=== PATIENT | male | born 1955 | race Caucasian/White ===

== ENCOUNTER → 2017-01-20 | Outpatient (CLI) | payer BC ==
[~2017-01-20] MED LIST: ADVI200T PO; LISI10TA4 PO; MULT1TAB18 PO; OMEG1CAP16 PO; OMEP40CA2 PO; PRAV1TAB39 PO; SALI0.653
[2017-01-20 17:57] LABS: ALBUMIN/GLOBULIN RATIO 1.48 (1.00-1.93); ALKALINE PHOSPHATASE 68 U/L (45-117); ALT/SGPT 29 U/L (12-78); ANION GAP 7 MEQ/L (8-16); AST/SGOT 14 U/L (15-37); BILIRUBIN,TOTAL 0.6 MG/DL (0.2-1.0); BLOOD UREA NITROGEN 18 MG/DL (7-18); CALCIUM LEVEL 8.3 MG/DL (8.8-10.2); CARBON DIOXIDE LEVEL 29 MEQ/L (21-32); CHLORIDE LEVEL 110 MEQ/L (98-107); CHOLESTEROL LEVEL 169 MG/DL (<200); CREATININE FOR GFR 0.86 MG/DL (0.70-1.30); GLOMERULAR FILTRATION RATE > 60.0 (>49); GLUCOSE, FASTING 94 MG/DL (80-110); POTASSIUM SERUM 4.5 MEQ/L (3.5-5.1); SODIUM LEVEL 146 MEQ/L (136-145); TOTAL PROTEIN 6.7 GM/DL (6.4-8.2); TRIGLYCERIDES LEVEL 64 MG/DL (<150)
[2017-01-20 18:02] LABS: BASO % 0.4 % (0.0-1.0); EOS # 0.2 K/mm3 (0.0-0.50); LARGE UNSTAINED CELL # 0.1 K/mm3 (0.0-0.4); LARGE UNSTAINED CELL % 2.3 % (0.0-4.0); LYMPH # 1.3 K/mm3 (1.5-4.5); MEAN CORPUSCULAR HGB CONC 33.2 g/dl (32.0-36.5); MEAN CORPUSCULAR VOLUME 93.2 fl (80.0-96.0); MONO # 0.4 K/mm3 (0.0-0.8); MONO % 7.6 % (0.0-5.0); NEUTROPHILS # 3.2 K/mm3 (1.8-7.7); NEUTROPHILS % 62.8 % (36.0-66.0); PLATELET COUNT, AUTOMATED 181 k/mm3 (150-450)
== END ==
LOC: M WUC 08:33
PROVIDERS: ATTEND Nurse Practitioner Family
DX: K21.9 Gastro-esophageal reflux disease without esophagitis (principal); E78.4 Other hyperlipidemia; I10 Essential (primary) hypertension

== ENCOUNTER → 2017-03-01 | Outpatient (REF) | payer BC | LOC: M LAB REF 16:15 | PROVIDERS: ATTEND Surgery | DX: L72.3 Sebaceous cyst (principal) ==

== ENCOUNTER → 2017-08-11 | Outpatient (CLI) | payer BC ==
[~2017-08-11] MED LIST changes: +SALI0.6523; -SALI0.653
[2017-08-14 14:11] LABS: PSA TOTAL 3.6 ng/mL (0.0-4.0)
== END ==
LOC: M WUC 08:18
PROVIDERS: ATTEND Nurse Practitioner Family
DX: R97.20 Elevated prostate specific antigen [PSA] (principal)

== ENCOUNTER 2017-10-24 08:14 | Day surgery (SDC) | payer OTHER, BC ==
[2017-10-24] MEDS: NS 1,000 ML IV (10:00)
[2017-10-24] MEDS ORDERED: PROPOFOL 200 MG/20 ML VIAL As Ordered (10:28)
[2017-10-24] MEDS ORDERED: LIDOCAINE 2% INJ 100 MG/5 ML SDV (FOR ANES.) As Ordered (10:28)
== END 2017-10-24 11:37 | disposition home or self-care (01) ==
LOC: M OPP 08:14
DX: Z12.11 Encounter for screening for malignant neoplasm of colon (principal); D12.5 Benign neoplasm of sigmoid colon; K64.0 First degree hemorrhoids; I10 Essential (primary) hypertension; E78.5 Hyperlipidemia, unspecified; K21.9 Gastro-esophageal reflux disease without esophagitis; R12 Heartburn; Z79.899 Other long term (current) drug therapy
CPT/HCPCS: 45380

== ENCOUNTER → 2018-08-10 | Outpatient (CLI) | payer MEDICARE, OTHER ==
[~2018-08-10] MED LIST changes: +OMEP20CA3 PO; -SALI0.6523; +SALI0.6528
[2018-08-10 18:01] LABS: BASO % 0.8 % (0.0-1.0); EOS # 0.1 10^3/uL (0.0-0.50); EOS % 2.4 % (0.0-3.0); HEMATOCRIT 44.8 % (42.0-52.0); HEMOGLOBIN 14.8 g/dl (13.5-17.5); LYMPH # 1.6 10^3/uL (1.5-4.5); LYMPH % 31.5 % (24.0-44.0); MEAN CORPUSCULAR HEMOGLOBIN 30.9 pg (27.0-33.0); MEAN CORPUSCULAR VOLUME 93.5 fl (80.0-96.0); MONO # 0.5 10^3/uL (0.0-0.8); MONO % 9.6 % (0.0-5.0); NEUTROPHILS # 2.8 10^3/uL (1.8-7.7); NEUTROPHILS % 55.5 % (36.0-66.0); PLATELET COUNT, AUTOMATED 171 10^3/uL (150-450); RED BLOOD COUNT 4.79 10^6/uL (4.30-6.10)
[2018-08-10 18:16] LABS: ALBUMIN 4.3 GM/DL (3.2-5.2); ALT/SGPT 34 U/L (12-78); BILIRUBIN,TOTAL 0.6 MG/DL (0.2-1.0); BLOOD UREA NITROGEN 16 MG/DL (7-18); CALCIUM LEVEL 9.1 MG/DL (8.8-10.2); CARBON DIOXIDE LEVEL 30 MEQ/L (21-32); CHLORIDE LEVEL 108 MEQ/L (98-107); CHOLESTEROL LEVEL 183 MG/DL (<200); CHOLESTEROL RISK RATIO 3.812 (<5); CREATININE FOR GFR 0.88 MG/DL (0.70-1.30); GLOMERULAR FILTRATION RATE > 60.0 (>49); GLUCOSE, FASTING 89 MG/DL (70-100); HDL CHOLESTEROL 48 MG/DL (>40); LDL CHOLESTEROL 110 MG/DL (<100); NON-HDL-C 135 MG/DL; POTASSIUM SERUM 4.8 MEQ/L (3.5-5.1); SODIUM LEVEL 143 MEQ/L (136-145); TOTAL PROTEIN 6.9 GM/DL (6.4-8.2); TRIGLYCERIDES LEVEL 123 MG/DL (<150)
[2018-08-14 00:07] LABS: PSA % FREE 17.4 % (.); PSA FREE 0.94 ng/mL; PSA TOTAL 5.4 ng/mL (0.0-4.0)
== END ==
LOC: M WUC 08:00
PROVIDERS: ATTEND Nurse Practitioner Family
DX: I10 Essential (primary) hypertension (principal); R97.20 Elevated prostate specific antigen [PSA]; E78.49 Other hyperlipidemia

== ENCOUNTER → 2018-08-30 | Outpatient (REF) | payer MEDICARE, OTHER ==
[2018-08-30 14:07] LABS: BACTERIA, URINE AUTO NEGATIVE (NEGATIVE); MUCUS, URINE SMALL (NEGATIVE); RBC, URINE AUTO 0 /HPF (0-3); SQUAMOUS EPITHELIAL CELL UR AU 0 /HPF (0-6); WBC, URINE AUTO 0 /HPF (0-3)
[2018-08-30 14:15] LABS: APPEARANCE, URINE CLEAR (CLEAR); BILIRUBIN, URINE AUTO NEGATIVE (NEGATIVE); BLOOD, URINE BLOOD NEGATIVE (NEGATIVE); COLOR, URINE YELLOW (YELLOW); GLUCOSE, URINE (UA) AUTO NEGATIVE (NEGATIVE); KETONE, URINE AUTO NEGATIVE (NEGATIVE); LEUKOCYTE ESTERASE, URINE AUTO NEGATIVE (NEGATIVE); NITRITE, URINE AUTO NEGATIVE (NEGATIVE); PROTEIN, URINE AUTO NEGATIVE (NEGATIVE); SPECIFIC GRAVITY URINE AUTO 1.018 (1.002-1.035); UROBILINOGEN, URINE AUTO 0.2 mg/dL (0.0-2.0)
== END ==
LOC: M SMT 13:01
PROVIDERS: ATTEND Nurse Practitioner Women's Health
DX: R97.20 Elevated prostate specific antigen [PSA] (principal)

== ENCOUNTER → 2018-10-08 | Outpatient (CLI) | payer MEDICARE ==
--- NOTE | 2018-10-08 13:02 | REP ---
Prostate sonography: History: Elevated PSA. Sonographic findings: Trans rectal prostate sonography demonstrates unremarkable seminal vesicles. Prostate gland is heterogeneously enlarged with calcifications and cystic changes noted. Glandular dimensions are measured at 5.4 x 3.6 x 5.0 cm with a calculated glandular volume of 51.5 ml. There is a 0.5 cm right-sided prostate nodule. There are two nodules at the visualized on the left measuring 0.6 and 0.8 cm. Transrectal sonographic guidance provided to Dr. Harris who performed trans rectal ultrasound guided needle biopsy procedure . Electronically Signed by Hans Hernandez MD 10/08/2018 12:54 P
== END ==
LOC: M SMT PRO 08:51
PROVIDERS: ATTEND Urology
DX: C61 Malignant neoplasm of prostate (principal)
CPT/HCPCS: 55700; 76872; 76942; G0416

== ENCOUNTER → 2019-03-28 | Outpatient (REF) | payer MEDICARE, OTHER ==
[2019-03-28 21:44] LABS: APPEARANCE, URINE MANUAL CLEAR (CLEAR); COLOR, URINE MANUAL ORANGE (YELLOW); GLUCOSE, URINE (UA) MANUAL NEGATIVE (NEGATIVE); KETONE, URINE MANUAL OBSCURED mg/dL (NEGATIVE); PROTEIN, URINE MANUAL OBSCURED mg/dL (NEGATIVE); UROBILINOGEN, URINE MANUAL OBSCURED mg/dl (NORMAL)
[2019-03-28 21:45] LABS: BILIRUBIN, URINE MANUAL OBSCURED (NEGATIVE); BLOOD URINE MANUAL OBSCURED (NEGATIVE); LEUKOCYTE ESTERASE, URINE MAN OBSCURED (NEGATIVE); NITRITE, URINE MANUAL OBSCURED (NEGATIVE)
[2019-03-28 21:46] LABS: BACTERIA, URINE NONE SEEN; HYALINE CAST, URINE NONE SEEN /lpf (0-1); MUCUS, URINE LARGE AMOUNT (NEGATIVE); SQUAMOUS EPITHELIAL CELL URINE SMALL AMOUNT /hpf (SMALL AMT)
== END ==
LOC: M LAB REF 12:31
PROVIDERS: ATTEND Physician Assistant Medical
DX: N39.0 Urinary tract infection, site not specified (principal)

== ENCOUNTER → 2019-03-29 | Outpatient (CLI) | payer MEDICARE, OTHER ==
[~2019-03-29] MED LIST changes: -OMEP20CA3 PO; +OMEP20CA4 PO
--- NOTE | 2019-03-29 15:02 | REP ---
Clinical: Pain. Technique: Two supine views of the abdomen and pelvis. Findings: Bowel gas pattern is nonspecific. No organomegaly. No significant abnormal calcifications. Skeletal structures are intact. Impression: Nonspecific bowel gas pattern. Electronically Signed by Woodrow Huertas MD 03/29/2019 12:34 P
== END ==
LOC: M RAD 12:04
PROVIDERS: ATTEND Physician Assistant Medical
DX: R14.3 Flatulence (principal)

== ENCOUNTER → 2019-03-29 | Outpatient (REF) | payer MEDICARE, OTHER ==
[~2019-03-29] MED LIST changes: +OMEP20CA3 PO; -OMEP20CA4 PO
[2019-03-29 21:50] LABS: APPEARANCE, URINE CLEAR (CLEAR); BACTERIA, URINE AUTO 1+ (NEGATIVE); BILIRUBIN, URINE AUTO NEGATIVE (NEGATIVE); BLOOD, URINE BLOOD NEGATIVE (NEGATIVE); COLOR, URINE YELLOW (YELLOW); GLUCOSE, URINE (UA) AUTO NEGATIVE (NEGATIVE); KETONE, URINE AUTO NEGATIVE (NEGATIVE); LEUKOCYTE ESTERASE, URINE AUTO NEGATIVE (NEGATIVE); NITRITE, URINE AUTO NEGATIVE (NEGATIVE); PROTEIN, URINE AUTO NEGATIVE (NEGATIVE); RBC, URINE AUTO 0 /HPF (0-3); SPECIFIC GRAVITY URINE AUTO 1.006 (1.002-1.035); SQUAMOUS EPITHELIAL CELL UR AU 0 /HPF (0-6); UROBILINOGEN, URINE AUTO 0.2 mg/dL (0.0-2.0); WBC, URINE AUTO 0 /HPF (0-3)
== END ==
LOC: M LAB REF 12:22
PROVIDERS: ATTEND Physician Assistant Medical
DX: N39.0 Urinary tract infection, site not specified (principal)

== ENCOUNTER → 2019-05-02 | Outpatient (REF) | payer MEDICARE, OTHER ==
[~2019-05-02] MED LIST changes: -OMEP20CA3 PO; +OMEP20CA4 PO
[2019-05-02 14:05] LABS: APPEARANCE, URINE CLEAR (CLEAR); BACTERIA, URINE AUTO NEGATIVE (NEGATIVE); BILIRUBIN, URINE AUTO NEGATIVE (NEGATIVE); BLOOD, URINE BLOOD NEGATIVE (NEGATIVE); COLOR, URINE YELLOW (YELLOW); GLUCOSE, URINE (UA) AUTO NEGATIVE (NEGATIVE); KETONE, URINE AUTO NEGATIVE (NEGATIVE); LEUKOCYTE ESTERASE, URINE AUTO NEGATIVE (NEGATIVE); MUCUS, URINE SMALL (NEGATIVE); NITRITE, URINE AUTO NEGATIVE (NEGATIVE); PROTEIN, URINE AUTO NEGATIVE (NEGATIVE); RBC, URINE AUTO 0 /HPF (0-3); SPECIFIC GRAVITY URINE AUTO 1.015 (1.002-1.035); SQUAMOUS EPITHELIAL CELL UR AU 0 /HPF (0-6); UROBILINOGEN, URINE AUTO 0.2 mg/dL (0.0-2.0); WBC, URINE AUTO 2 /HPF (0-3)
== END ==
LOC: M SMT 12:58
PROVIDERS: ATTEND Urology
DX: R35.0 Frequency of micturition (principal)

== ENCOUNTER → 2019-05-02 | Outpatient (CLI) | payer MEDICARE, OTHER | LOC: M SMT 10:12 | PROVIDERS: ATTEND Urology | DX: C61 Malignant neoplasm of prostate (principal); R35.0 Frequency of micturition | CPT/HCPCS: 36415; 81001; 84153; 87086; G0463 ==

== ENCOUNTER → 2019-10-30 | Outpatient (CLI) | payer MEDICARE, OTHER ==
[~2019-10-30] MED LIST changes: +OMEP1CAP73 PO; -OMEP20CA4 PO; -OMEP40CA2 PO; +OMEP40CA97 PO
== END ==
LOC: M PLALAB 08:00
PROVIDERS: ATTEND Urology
DX: C61 Malignant neoplasm of prostate (principal)

== ENCOUNTER → 2019-12-16 | Outpatient (CLI) | payer MEDICARE, OTHER ==
--- NOTE | 2019-12-16 14:24 | REPPI ---
Prostate sonography: History: Prostate malignancy. Sonographic findings: Trans rectal prostate sonography demonstrates unremarkable seminal vesicles. Prostate gland is heterogeneously enlarged with calcifications and cystic changes noted. Glandular dimensions are measured at 4.8 x 3.4 x 4.9 cm with a calculated glandular volume of 40.8 ml. Transrectal sonographic guidance is provided to Dr. Harris who performed trans rectal ultrasound guided needle biopsy procedure . Electronically Signed by Hans Hernandez MD 12/16/2019 02:15 P
== END ==
LOC: M SMT PRO 09:58
PROVIDERS: ATTEND Urology
DX: C61 Malignant neoplasm of prostate (principal)
CPT/HCPCS: 55700; 76942; G0416

== ENCOUNTER → 2020-03-24 | Outpatient (CLI) | payer MEDICARE, OTHER | LOC: M PLALAB 08:07 | PROVIDERS: ATTEND Urology | DX: C61 Malignant neoplasm of prostate (principal) ==

== ENCOUNTER → 2020-06-22 | Outpatient (CLI) | payer MEDICARE, OTHER | LOC: M PLALAB 08:02 | PROVIDERS: ATTEND Urology | DX: C61 Malignant neoplasm of prostate (principal) ==

== ENCOUNTER → 2020-11-26 | Outpatient (REF) | payer MEDICARE ==
[~2020-11-26] MED LIST changes: +LISI10TA22 PO; -LISI10TA4 PO
== END ==
LOC: M PLALAB 08:01
PROVIDERS: ATTEND Urology
DX: C61 Malignant neoplasm of prostate (principal)

== ENCOUNTER → 2021-02-08 | Outpatient (CLI) | payer MEDICARE ==
--- NOTE | 2021-02-08 12:58 | REPPI ---
INDICATION: ELEVATED PSA. COMPARISON: None. TECHNIQUE: Transrectal prostate ultrasound performed, with ultrasound guidance provided for Dr. Harris who performed ultrasound-guided biopsy. FINDINGS: Prostate measures 4.5 x 3.5 x 5.0 cm, total volume 40.4 mL. IMPRESSION: Prostate ultrasound as above, ultrasound guidance was provided for Dr. Harris who performed ultrasound-guided biopsy of the prostate. <Electronically signed by Peña Mock > 02/08/21 [id number]
== END ==
LOC: M SMT PRO 08:37
PROVIDERS: ATTEND Urology
DX: R97.20 Elevated prostate specific antigen [PSA] (principal)
CPT/HCPCS: 55700; 76872; 76942; G0416

== ENCOUNTER → 2021-02-23 | Outpatient (REF) | payer MEDICARE ==
[2021-02-23 11:09] LABS: BLOOD UREA NITROGEN 14 MG/DL (7-18); CREATININE FOR GFR 0.81 MG/DL (0.70-1.30); GLUCOSE, FASTING 92 MG/DL (70-100)
[2021-02-23 11:10] LABS: CALCIUM LEVEL 9.5 MG/DL (8.8-10.2); CARBON DIOXIDE LEVEL 28 MEQ/L (21-32); CHLORIDE LEVEL 109 MEQ/L (98-107); GLOMERULAR FILTRATION RATE > 60.0 (>49); POTASSIUM SERUM 4.4 MEQ/L (3.5-5.1); SODIUM LEVEL 142 MEQ/L (136-145)
== END ==
LOC: M PLALAB 09:52
PROVIDERS: ATTEND Urology
DX: C61 Malignant neoplasm of prostate (principal)

== ENCOUNTER → 2021-04-05 | Outpatient (CLI) | payer MEDICARE ==
[~2021-04-05] MED LIST changes: +OMEP40CA4 PO; -OMEP40CA97 PO; +PRAV40TA2 PO; +VITMTA PO
[2021-04-05 07:07] LABS: HEMOGLOBIN 14.1 g/dl (13.5-17.5); MEAN CORPUSCULAR HEMOGLOBIN 30.9 pg (27.0-33.0); MEAN CORPUSCULAR HGB CONC 33.6 g/dl (32.0-36.5); MEAN CORPUSCULAR VOLUME 92.1 fl (80.0-96.0); PLATELET COUNT, AUTOMATED 183 10^3/uL (150-450); RED BLOOD COUNT 4.56 10^6/uL (4.30-6.10); WHITE BLOOD COUNT 5.3 10^3/uL (4.0-10.0)
[2021-04-05 07:26] LABS: INR 0.95; PROTHROMBIN TIME 12.9 SECONDS (12.5-14.3)
--- NOTE | 2021-04-05 07:26 | ECGEPIP ---
[facility] Test Date: 2021-04-05 Pat Name: FADI REYNAGA Department: Room: - Gender: Male [employer] Operator: caio : 1955 Requested By: KARLOS Osborne Order Number: [id number] Reading MD: Fadi Pinzon Measurements Intervals [place] Rate: 60 P: 61 OR: 168 QRS: 64 QRSD: 90 T: 61 QT: 386 QTc: 386 Interpretive Statements Normal sinus rhythm Comparison tracing not on file Electronically Signed on 04-05-2021 7:26:13 EDT by Fadi Pinzon
[2021-04-05 07:27] LABS: PARTIAL THROMBOPLASTIN TIME 25.4 SECONDS (24.2-38.5)
[2021-04-05 08:07] LABS: BLOOD UREA NITROGEN 19 MG/DL (7-18); CARBON DIOXIDE LEVEL 28 MEQ/L (21-32); CHLORIDE LEVEL 108 MEQ/L (98-107); CREATININE FOR GFR 0.92 MG/DL (0.70-1.30); GLOMERULAR FILTRATION RATE > 60.0 (>49); GLUCOSE, FASTING 94 MG/DL (70-100); POTASSIUM SERUM 4.2 MEQ/L (3.5-5.1); SODIUM LEVEL 141 MEQ/L (136-145)
--- NOTE | 2021-04-05 08:50 | REP ---
INDICATION: PREOP PT HAS LABS AND EKG 1ST COMPARISON: None. TECHNIQUE: PA and lateral. FINDINGS: The mediastinum and cardiac silhouette are normal. The lung graham are clear and without acute consolidation, effusion, or pneumothorax. The skeletal structures are intact and normal. IMPRESSION: No acute cardiopulmonary process. <Electronically signed by Woodrow Huertas > 04/05/21 0809
== END ==
LOC: M LAB 06:17
PROVIDERS: ATTEND Urology
DX: Z01.818 Encounter for other preprocedural examination (principal); C61 Malignant neoplasm of prostate; N39.0 Urinary tract infection, site not specified; Z79.899 Other long term (current) drug therapy

== ENCOUNTER → 2021-04-08 | Outpatient (CLI) | payer MEDICARE ==
[~2021-04-08] MED LIST changes: +CIPR-249 PO; +DOK1CAP4 PO; +PERCOCET PO
== END ==
LOC: M LABSMTC 11:32
PROVIDERS: ATTEND Anesthesiology
DX: Z01.812 Encounter for preprocedural laboratory examination (principal)

== ENCOUNTER 2021-04-13 07:01 | Inpatient (IN) | payer MEDICARE ==
[~2021-04-13] VITALS: Ht 180.3 cm; Wt 82.1 kg
[~2021-04-13 07:01] MED LIST changes: -CIPR-249 PO; -DOK1CAP4 PO; +HEPARIN SOD (PORCINE) 5000UNITS/ML 1ML VIAL/SYRINGE SQ ONE; +LIDOCAINE 1% MDV 20ML VIAL SQ PRN; +LR 1,000 ML IV ONE; -PERCOCET PO; +ceFAZolin SOD 2 GM in IV 1 EA IV ONE
[2021-04-13] MEDS ORDERED: ACETAMINOPHEN 1000MG 100ML IV BTL (OFIRMEV) (J0131 PER 10MG) As Ordered ONE (07:10)
[2021-04-13] MEDS ORDERED: ROCURONIUM BROMIDE 50 MG/5 ML VIAL As Ordered ONE ×2 (07:10→09:49)
[2021-04-13] MEDS ORDERED: propofoL 200 MG/20 ML VIAL As Ordered ONE (07:10)
[2021-04-13] MEDS ORDERED: SUGAMMADEX SODIUM 500 MG/5 ML VIAL (BRIDION) As Ordered ONE (07:10)
[2021-04-13] MEDS ORDERED: ONDANSETRON 4MG/2ML VIAL As Ordered ONE (07:10)
[2021-04-13] MEDS ORDERED: dexameTHASONE 4 MG/ML 1ML VIAL (J1100 PER 1MG) As Ordered ONE (07:10)
[2021-04-13] MEDS ORDERED: LIDOCAINE 2% 100MG/5ML SDV (FOR ANES.) As Ordered ONE (07:10)
[2021-04-13] MEDS ORDERED: MIDAZOLAM INJ 2MG/2ML VIAL (J2250 PER 1MG) As Ordered ONE (07:10)
[2021-04-13] MEDS ORDERED: HYDROmorphone HCL 2 MG/ML 1ML VIAL (J1170) As Ordered ONE (07:10)
[2021-04-13] MEDS ORDERED: fentaNYL 100 MCG/2 ML INJECTION (J3010) As Ordered ONE (07:11)
[2021-04-13] MEDS ORDERED: LIDOCAINE 1% SDV 30ML VIAL As Ordered ONE (08:04)
[2021-04-13] MEDS ORDERED: BUPIVACAINE HCL 0.25% 30ML VIAL As Ordered ONE (08:05)
[2021-04-13] MEDS ORDERED: ONDANSETRON 4MG/2ML VIAL IV PRN ×2 (08:40→14:00)
[2021-04-13] MEDS ORDERED: PERCOCET 5MG/325MG TAB PO PRN (08:40)
[2021-04-13] MEDS ORDERED: ACETAMINOPHEN TAB 650MG DOSE (2X325MG) PO PRN (08:40)
[2021-04-13] MEDS ORDERED: ceFAZolin 2 GM/D5W 50 ML IV BAG (J0690 PER 500MG) As Ordered ONE (12:48)
--- NOTE | 2021-04-13 13:36 | ROOPDOC ---
[facility] Report Of Operation Report of Operation DATE OF PROCEDURE: 04/13/21 PREPROCEDURE DIAGNOSIS: Prostate cancer. POSTPROCEDURE DIAGNOSIS: Prostate cancer. PROCEDURE: Robotic-assisted laparoscopic radical prostatectomy with bilateral pelvic lymph node dissection. SURGEON: Karlos Castellon MD OIL SPREADER OPERATOR: Leslee Zapata NP ANESTHESIA: General. OPERATIVE INDICATIONS: This is a 65 year old male with intermediate risk clinical T1c [place] 4+3 prostate cancer. After a discussion of the options for treatment, he elected to undergo the above procedure. DESCRIPTION OF PROCEDURE: The patient was brought to the operating room and general anesthesia was induced. Prophylactic antibiotics were infused. He was then placed in the dorsal lithotomy position and prepped and draped in the usual sterile fashion. At this point, a Flores catheter was inserted into the bladder and the balloon was filled with 10 mL of sterile water. We then made a midline incision just above the umbilicus for an 8 mm port. A Veress needle was utilized to achieve pneumoperitoneum. Next, an 8 mm port was inserted into the incision and subsequently a camera was inserted. There were no injuries from the Veress needle or initial trocar placement. At this point, we placed the remaining ports, including a 12 mm medical library assistant port and then three robotic ports in the usual configuration. Once all the ports were placed, the robot was docked. Lysis of adhesions between the sigmoid colon and abdominal wall was then performed. The bladder was then released from the anterior abdominal wall using electrocautery. Once the bladder was dropped, the fat overlying the prostate was cleared using electrocautery. The superficial dorsal vein was controlled with electrocautery. The endopelvic fascia was opened on both sides and the dorsal venous complex was cleared. Next, a #0 Vicryl [id number] stitch was placed around the dorsal venous complex. Once that was done, the bladder was opened and dissected away from the prostate. At this point, the prostate was lifted up. The vasa deferentia were identified in the midline. They were then ligated and transected. The seminal vesicles were also dissected off bilaterally. The rectum was safely mobilized away from the prostate. Bilateral neurovascular bundles were carefully dissected off using cold scissors. Bilateral prostatic pedicles were taken using the Synchroseal. The pedicles were carried towards the apex. After taking care of the pedicles and mobilizing the rectum off the prostate below, the prostate was only connected by the urethra. At this point, the dorsal venous complex was transected with electrocautery. The urethra was then opened and the catheter was withdrawn and the posterior urethra was transected, thus freeing the prostate. At this point, we checked for hemostasis and it did appear very good. Next, we performed bilateral pelvic lymph node dissection. This was done in a standard fashion. The limits of dissection were the iliac vein proximally, the obturator nerve distally, the pelvic sidewall laterally, and the bladder medially. All lymphatic tissue within these limits was removed. I performed the same procedure on both the right and left sides. Hemostasis was then obtained with bipolar electrocautery. The lymphatic packets were then placed in separate Endo Catch bags for future retrieval. Once hemostasis was confirmed, I then moved on to perform the vesicourethral anastomosis. This was performed with a Quill stitch in a running fashion. Once this was done, the final #20-Nepali Flores catheter was placed. The balloon was filled with 15 mL of sterile water. Upon completion of the vesicourethral anastomosis, it was tested by filling the bladder with sterile saline water. The anastomosis appeared to be watertight. At this point, the prostate and seminal vesicles were placed in an Endo Catch bag for future retrieval. The robot was then undocked. A Greta fascial closure device was utilized to place a #0 Vicryl suture between the fascia of the 12 mm medical library assistant port. At this point, a Donald- Mcwilliams drain was brought in through the left robotic port skin site and the drain was positioned anterior to the bladder. The drain was secured to the skin with #2-0 Ethilon suture. Next, all the remaining ports were removed and there did not appear to be any bleeding from any of the port sites. The prostate, as well as the lymphatic packets were then extracted from the camera port site after the skin was extended. The fascia in this incision was then closed with a running #0 Vicryl stitch. The previously placed #0 Vicryl free ties through the medical library assistant port were then tied down and all incisions were irrigated. Last, all of the incisions were closed with running subcuticular #4-0 Monocryl sutures. Local anesthesia was applied. Dermabond was then applied to the incisions. This marked the conclusion of the procedure. The patient was then taken out of the dorsal lithotomy position, awakened from anesthesia and transported to the recovery room in stable condition. ESTIMATED BLOOD LOSS: 300 mL. COMPLICATIONS: None. SPECIMENS: Prostate and seminal vesicles, right pelvic lymph nodes, left pelvic lymph nodes. PLAN: The patient will be admitted to the hospital postoperatively, and he will likely be discharged home within the next 1-2 days. KARLOS CASTELLON MD Apr 13, 2021 08:47
[2021-04-13] MEDS ORDERED: oxyCODONE 5MG TAB PO PRN (14:00)
[2021-04-13] MEDS ORDERED: LR 1,000 ML IV SCH (14:00)
[2021-04-13 14:09] LABS: HEMATOCRIT 41.7 % (42.0-52.0); HEMOGLOBIN 13.8 g/dl (13.5-17.5); MEAN CORPUSCULAR HEMOGLOBIN 31.1 pg (27.0-33.0); MEAN CORPUSCULAR HGB CONC 33.1 g/dl (32.0-36.5); MEAN CORPUSCULAR VOLUME 93.9 fl (80.0-96.0); PLATELET COUNT, AUTOMATED 160 10^3/uL (150-450); RED BLOOD COUNT 4.44 10^6/uL (4.30-6.10); WHITE BLOOD COUNT 10.6 10^3/uL (4.0-10.0)
[2021-04-13 14:35] LABS: BLOOD UREA NITROGEN 10 MG/DL (7-18); CALCIUM LEVEL 8.3 MG/DL (8.8-10.2); CARBON DIOXIDE LEVEL 26 MEQ/L (21-32); CHLORIDE LEVEL 111 MEQ/L (98-107); CREATININE FOR GFR 1.03 MG/DL (0.70-1.30); GLOMERULAR FILTRATION RATE > 60.0 (>49); GLUCOSE, FASTING 145 MG/DL (70-100); POTASSIUM SERUM 4.2 MEQ/L (3.5-5.1); SODIUM LEVEL 143 MEQ/L (136-145)
[2021-04-13] MEDS: fentaNYL 100 MCG/2 ML INJECTION (J3010) IV PRN ×2 (14:53→14:58)
[2021-04-13 16:45] VITALS: BP 135/80
[2021-04-13] MEDS: ceFAZolin SOD 1 GM in D5W MINI-BAG PLUS 50 ML IV SCH (16:50)
[2021-04-13] MEDS: NS 1,000 ML IV SCH (16:50)
[2021-04-13] MEDS: DOCUSATE SODIUM 100MG CAPSULE PO SCH ×2 (16:50→21:36)
[2021-04-13 17:35] VITALS: BP 131/78
[2021-04-13 18:04] VITALS: BP 135/76
[2021-04-13] MEDS: PERCOCET 5MG/325MG TAB PO PRN (18:26)
[2021-04-13 18:48] VITALS: BP 133/76
[2021-04-13] MEDS ORDERED: PRAVASTATIN 20 MG TAB PO SCH (21:00)
[2021-04-13] MEDS: HEPARIN SOD (PORCINE) 5000UNITS/ML 1ML VIAL/SYRINGE SC SCH (21:37)
[2021-04-13 22:00] VITALS: BP 134/75
[2021-04-14] MEDS: ceFAZolin SOD 1 GM in D5W MINI-BAG PLUS 50 ML IV SCH (01:14)
[2021-04-14] MEDS: NS 1,000 ML IV SCH (01:15)
[2021-04-14 02:00] VITALS: BP 120/71
[2021-04-14] MEDS: HEPARIN SOD (PORCINE) 5000UNITS/ML 1ML VIAL/SYRINGE SC SCH ×2 (05:26→14:15)
[2021-04-14 05:49] VITALS: BP 127/72
[2021-04-14 07:09] LABS: HEMATOCRIT 38.9 % (42.0-52.0); MEAN CORPUSCULAR HEMOGLOBIN 31.3 pg (27.0-33.0); MEAN CORPUSCULAR HGB CONC 33.4 g/dl (32.0-36.5); MEAN CORPUSCULAR VOLUME 93.7 fl (80.0-96.0); RED BLOOD COUNT 4.15 10^6/uL (4.30-6.10); WHITE BLOOD COUNT 8.5 10^3/uL (4.0-10.0)
[2021-04-14 07:30] LABS: BLOOD UREA NITROGEN 11 MG/DL (7-18); CALCIUM LEVEL 8.2 MG/DL (8.8-10.2); CARBON DIOXIDE LEVEL 27 MEQ/L (21-32); CHLORIDE LEVEL 108 MEQ/L (98-107); CREATININE FOR GFR 0.82 MG/DL (0.70-1.30); GLOMERULAR FILTRATION RATE > 60.0 (>49); GLUCOSE, FASTING 97 MG/DL (70-100); POTASSIUM SERUM 4.1 MEQ/L (3.5-5.1); SODIUM LEVEL 142 MEQ/L (136-145)
[2021-04-14 08:05] VITALS: BP 126/74
[2021-04-14] MEDS: PERCOCET 5MG/325MG TAB PO PRN ×3 (08:05→16:23)
[2021-04-14] MEDS: DOCUSATE SODIUM 100MG CAPSULE PO SCH (08:05)
[2021-04-14] MEDS ORDERED: OMEPRAZOLE 20 MG CAP PO SCH (09:00)
--- NOTE | 2021-04-14 09:25 | IPNPDOC ---
Subjective Review oF Systems Chief Complaint The patient is a 65-year-old male admitted with a reason for visit of Prostate Cancer. Events since Last Encounter No acute events o/n. Good pain control. No n/v. Ambulated a little last night. No f/c/ns. Objective Physical Examination General Exam: Alert, Cooperative, No Acute Distress ABDOMEN EXAM: Soft, Tenderness (minimal), Other (incisions clean/dry/intact; TANISHA draining serosanguinous fluid) Skin Exam: Nl turgor and temperature Psych Exam: Mental status NL, Mood NL Other physical findings catheter draining clear yellow urine Vital Signs/I&O Vital Signs Date Time Temp Pulse Resp B/P (MAP) Pulse Ox O2 Delivery O2 Flow Rate FiO2 04/14/21 08:05 126/74 04/14/21 08:05 16 04/14/21 05:49 98.8 78 94 Room Air 04/13/21 14:58 10.0 I&O- Last 24 Hours up to 6 AM 04/14/21 05:59 Intake Total 4920 ml Output Total 1195 ml Balance 3725 ml Laboratory Data Labs 24H Laboratory Tests 2 04/13/21 13:56: Nucleated Red Blood Cells % (auto) 0.0, Anion Gap 6L, Glomerular Filtration Rate > 60.0, Calcium Level 8.3L 04/14/21 06:53: Nucleated Red Blood Cells % (auto) 0.0, Anion Gap 7L, Glomerular Filtration Rate > 60.0, Calcium Level 8.2L CBC/BMP Laboratory Tests 04/13/21 13:56 04/14/21 06:53 Assessment/Plan Date Seen The patient was seen on 04/14/21. Patient Summary This is a 65 y/o M POD1 s/p RALP w/ BPLND. He is doing well. Hb stable at 13. Cr 0.8. Good UOP. Normal TANISHA output. Plan/VTE VTE Prophylaxis Ordered?: Yes VTE Exclusion Mechanical Proph: N/A:VTE Prophy Ordered VTE Exclusion Pharmacological: N/A:VTE Prophy Ordered Plan/Urinary Catheter Urinary Catheter: Other Catheter: (catheter to stay in for at least 7 days for healing of vesicourethral anastomosis) Plan - d/c IVF - percocet prn pain - continue home meds - strict I/Os - SQH - ambulate - SCDs when in bed - incentive spirometry - advance diet as tolerated - likely discharge home later today w/ catheter (will d/c TANISHA drain prior to discharge) KARLOS CASTELLON MD Apr 14, 2021 09:25
[2021-04-14 14:00] VITALS: BP 148/73
[2021-04-14] MEDS ORDERED: PERCOCET PO (16:23)
[2021-04-14] MEDS ORDERED: DOK1CAP7 PO (16:23)
[2021-04-14] MEDS ORDERED: CIPR-249 PO (16:23)
--- NOTE | 2021-04-14 21:20 | DSES ---
DISCHARGE SUMMARY DATE OF ADMISSION: 04/13/2021 DATE OF DISCHARGE: 04/14/2021 ADMITTING PHYSICIAN: Robert Harris M.D. DISCHARGING PHYSICIAN: Robert Harris M.D. ADMISSION DIAGNOSIS: Prostate cancer. DISCHARGE DIAGNOSIS: Prostate cancer. PROCEDURE PERFORMED: Robotic assisted laparoscopic radical prostatectomy with bilateral pelvic lymph node dissection on April 13, 2021. HISTORY OF PRESENT ILLNESS: This is a 65-year-old male with intermediate risk prostate cancer, who elected to undergo the above listed procedure for treatment. He was admitted to the hospital postoperatively. HOSPITALIZATION COURSE: The patient was admitted to the hospital after undergoing the above listed procedure. His postoperative course was unremarkable. His labs during this hospital stay were within normal limits, specifically his hemoglobin level was stable at around 13. His serum creatinine leveled out at 0.82 on postoperative day #1. He had excellent urine output through his Flores catheter and minimal output from his Donald-Mcwilliams drain. On postoperative day #1, he began ambulating and was ambulating well by the afternoon of postoperative day #1. His pain was well controlled with oral pain medications. Since he was doing well, he was deemed ready for discharge home on postoperative day #1. His Donald-Mcwilliams drain was removed. He was discharged home with his catheter in place, with a plan for him to follow-up in urology office in approximately one week for catheter removal and to discuss his pathology results.
== END 2021-04-14 18:20 | disposition home or self-care (01) | DRG 708 ==
LOC: M OR 07:01 → M MS5PR 16:32
PROVIDERS: ADMIT Urology; ATTEND Urology
PROC: 07BC4ZX Excision of Pelvis Lymphatic, Percutaneous Endoscopic Approach, Diagnostic (ICD-10-PCS; 2021-04-13)
PROC: 8E0W4CZ Robotic Assisted Procedure of Trunk Region, Percutaneous Endoscopic Approach (ICD-10-PCS; 2021-04-13)
PROC: 0VT04ZZ Resection of Prostate, Percutaneous Endoscopic Approach (ICD-10-PCS; principal; 2021-04-13 08:30)
DX: C61 Malignant neoplasm of prostate (principal); Z79.899 Other long term (current) drug therapy; K21.9 Gastro-esophageal reflux disease without esophagitis; I10 Essential (primary) hypertension; E78.00 Pure hypercholesterolemia, unspecified

== ENCOUNTER → 2021-05-17 | Outpatient (CLI) | payer MEDICARE ==
[~2021-05-17] MED LIST changes: +CIPR-249 PO; +DOK1CAP4 PO; -HEPARIN SOD (PORCINE) 5000UNITS/ML 1ML VIAL/SYRINGE SQ ONE; -LIDOCAINE 1% MDV 20ML VIAL SQ PRN; -LR 1,000 ML IV ONE; +PERCOCET PO; -ceFAZolin SOD 2 GM in IV 1 EA IV ONE
== END ==
LOC: M PLALAB 07:53
PROVIDERS: ATTEND Nurse Practitioner Family
DX: C61 Malignant neoplasm of prostate (principal)

== ENCOUNTER → 2021-08-17 | Outpatient (CLI) | payer MEDICARE | LOC: M PLALAB 08:05 | PROVIDERS: ATTEND Urology | DX: C61 Malignant neoplasm of prostate (principal) ==

== ENCOUNTER → 2021-11-28 | Outpatient (CLI) | payer MEDICARE | LOC: M PLALAB 07:54 | PROVIDERS: ATTEND Urology | DX: C61 Malignant neoplasm of prostate (principal) ==

== ENCOUNTER → 2021-12-16 | Outpatient (CLI) | payer MEDICARE | LOC: M PLALAB 07:48 | PROVIDERS: ATTEND Urology | DX: C61 Malignant neoplasm of prostate (principal) ==

== ENCOUNTER → 2021-12-27 | Outpatient (CLI) | payer MEDICARE ==
[~2021-12-27] MED LIST changes: +BICA50TA9 PO
== END ==
LOC: M ONCR 12:21
PROVIDERS: ATTEND General Practice
DX: C61 Malignant neoplasm of prostate (principal); R97.21 Rising PSA following treatment for malignant neoplasm of prostate

== ENCOUNTER → 2022-01-05 | Outpatient (CLI) | payer MEDICARE ==
[~2022-01-05] MED LIST changes: +LEUPROLIDE 45MG SYRINGE KIT (LUPRON DEPOT) (FOR ONCOLOGY) IM ONE
== END ==
LOC: M ONCR 14:30
PROVIDERS: ATTEND General Practice
DX: C61 Malignant neoplasm of prostate (principal)

== ENCOUNTER 2022-01-27 10:45 | Outpatient (RCR) | payer MEDICARE | END 2022-01-28 | LOC: M ONCR 10:45 | PROVIDERS: ATTEND General Practice | DX: C61 Malignant neoplasm of prostate (principal) | CPT/HCPCS: 77300; 77301; 77334; 77336; 77338; 77385; G0463 ==

== ENCOUNTER → 2022-02-28 | Outpatient (RCR) | payer MEDICARE, BC ==
[~2022-02-28] MED LIST changes: -LEUPROLIDE 45MG SYRINGE KIT (LUPRON DEPOT) (FOR ONCOLOGY) IM ONE
== END ==
LOC: M ONCR 01-30 10:41
PROVIDERS: ATTEND General Practice
DX: C61 Malignant neoplasm of prostate (principal)

== ENCOUNTER 2022-03-14 09:02 | Outpatient (RCR) | payer MEDICARE, BC | END 2022-03-30 | LOC: M ONCR 09:02 | PROVIDERS: ATTEND General Practice | DX: C61 Malignant neoplasm of prostate (principal) ==

== ENCOUNTER → 2022-06-15 | Outpatient (CLI) | payer MEDICARE, BC | LOC: M PLALAB 07:49 | PROVIDERS: ATTEND Urology | DX: C61 Malignant neoplasm of prostate (principal) ==

== ENCOUNTER → 2022-06-19 | Outpatient (CLI) | payer MEDICARE, BC | LOC: M ONCR 08:43 | PROVIDERS: ATTEND General Practice | DX: C61 Malignant neoplasm of prostate (principal); Z87.891 Personal history of nicotine dependence; Z79.899 Other long term (current) drug therapy; Z92.3 Personal history of irradiation ==

== ENCOUNTER → 2022-11-28 | Outpatient (REF) | payer MEDICARE, BC | LOC: M LAB REF 16:22 | PROVIDERS: ATTEND Internal Medicine | DX: C61 Malignant neoplasm of prostate (principal) ==

== ENCOUNTER → 2022-12-19 | Outpatient (CLI) | payer MEDICARE, BC | LOC: M ONCR 08:50 | PROVIDERS: ATTEND General Practice | DX: C61 Malignant neoplasm of prostate (principal); Z79.899 Other long term (current) drug therapy; Z87.891 Personal history of nicotine dependence; Z92.3 Personal history of irradiation; Z92.29 Personal history of other drug therapy ==

== ENCOUNTER → 2023-06-05 | Outpatient (REF) | payer MEDICARE, BC ==
[2023-06-06 17:58] LABS: C REACTIVE PROTEIN QUANTITATIV < 0.40 MG/DL (<1.0); PROSTATIC SPECIFIC AG MONITOR 0.04 NG/ML (< 4.00)
[2023-06-06 18:02] LABS: VITAMIN B12 LEVEL 439 PG/ML (211-911)
[2023-06-06 18:58] LABS: FOLATE 21.5 NG/ML (>5.4)
== END ==
LOC: M LAB REF 12:38
PROVIDERS: ATTEND Internal Medicine
DX: D72.819 Decreased white blood cell count, unspecified (principal); M54.50 Low back pain, unspecified; G31.84 Mild cognitive impairment of uncertain or unknown etiology; C61 Malignant neoplasm of prostate

== ENCOUNTER → 2023-07-12 | Outpatient (REF) | payer MEDICARE, BC ==
[2023-07-13 13:23] LABS: C REACTIVE PROTEIN QUANTITATIV < 0.40 MG/DL (<1.0)
[2023-07-13 13:25] LABS: RHEUMATOID FACTOR QUANT < 3.5 IU/ML (<14)
[2023-07-14 19:07] LABS: ANTINUCLEAR ANTIBODIES DIRECT Negative (Negative); CYCLIC CITRULLINATED PEPTIDE 6 units (0-19)
== END ==
LOC: M LAB REF 12:18
PROVIDERS: ATTEND Internal Medicine
DX: D72.819 Decreased white blood cell count, unspecified (principal)

== ENCOUNTER → 2023-09-12 | Outpatient (CLI) | payer OTHER | LOC: M RAD 09:41 | PROVIDERS: ATTEND Internal Medicine Hematology & Oncology | DX: D72.819 Decreased white blood cell count, unspecified (principal) ==

== ENCOUNTER → 2023-11-06 | Outpatient (REF) | payer OTHER, BC ==
[2023-11-06 13:00] LABS: INR 1.11
== END ==
LOC: M LAB REF 12:12
PROVIDERS: ATTEND Internal Medicine
DX: Z01.818 Encounter for other preprocedural examination (principal); Z79.01 Long term (current) use of anticoagulants

== ENCOUNTER → 2023-11-08 | Outpatient (CLI) | payer OTHER ==
[~2023-11-08] MED LIST changes: +LIDOCAINE 1% MDV 20ML VIAL As Ordered ONE
[2023-11-08 12:10] VITALS: BP 147/80; TEMP 98; O2SAT 98
[2023-11-08 12:52] LABS: BASO % 1.1 % (0.0-1.0); EOS # 0.2 10^3/uL (0.0-0.5); EOS % 4.4 % (0.0-3.0); HEMATOCRIT 38.4 % (42.0-52.0); HEMOGLOBIN 13.2 g/dl (13.5-17.5); LYMPH # 0.7 10^3/uL (1.5-5.0); LYMPH % 19.5 % (24.0-44.0); MEAN CORPUSCULAR HGB CONC 34.4 g/dl (32.0-36.5); MEAN CORPUSCULAR VOLUME 93.2 fl (80.0-96.0); MONO # 0.4 10^3/uL (0.0-0.8); MONO % 11.8 % (2.0-8.0); NEUTROPHILS # 2.3 10^3/uL (1.5-8.5); NEUTROPHILS % 62.9 % (36.0-66.0); PLATELET COUNT, AUTOMATED 129 10^3/uL (150-450); RED BLOOD COUNT 4.12 10^6/uL (4.30-6.10); WHITE BLOOD COUNT 3.7 10^3/uL (4.0-10.0)
== END ==
LOC: M IRPRO 11:57
PROVIDERS: ATTEND Internal Medicine Hematology & Oncology
DX: D72.819 Decreased white blood cell count, unspecified (principal)

== ENCOUNTER → 2023-12-20 | Outpatient (CLI) | payer BC, OTHER ==
[~2023-12-20] MED LIST changes: -LIDOCAINE 1% MDV 20ML VIAL As Ordered ONE; +THERTAB52 PO
== END ==
LOC: M ONCR 08:42
PROVIDERS: ATTEND General Practice
DX: C61 Malignant neoplasm of prostate (principal); R35.1 Nocturia; Z92.3 Personal history of irradiation; Z92.29 Personal history of other drug therapy; Z87.891 Personal history of nicotine dependence; Z79.899 Other long term (current) drug therapy; Z71.2 Person consulting for explanation of examination or test findings
CPT/HCPCS: 36415; 84153; G0463

== ENCOUNTER → 2024-04-10 | Outpatient (CLI) | payer OTHER ==
[~2024-04-10] MED LIST changes: +BICA50TA4 PO; -BICA50TA9 PO
== END ==
LOC: M WUC 15:05
PROVIDERS: ATTEND Internal Medicine
DX: C61 Malignant neoplasm of prostate (principal); I10 Essential (primary) hypertension; R60.9 Edema, unspecified

== ENCOUNTER → 2024-04-29 | Outpatient (CLI) | payer OTHER | LOC: M CARPUL 08:17 | PROVIDERS: ATTEND Internal Medicine | DX: R60.0 Localized edema (principal) ==

== ENCOUNTER → 2024-05-02 | Outpatient (CLI) | payer OTHER ==
[~2024-05-02] MED LIST changes: +GASTROGRAFIN SOLUTION 30ML As Ordered ONE; +ISOVUE-370 76% 100ML VIAL As Ordered ONE
== END ==
LOC: M RAD 10:50
PROVIDERS: ATTEND Internal Medicine
DX: K80.20 Calculus of gallbladder without cholecystitis without obstruction (principal); K86.89 Other specified diseases of pancreas; R60.0 Localized edema; Z85.46 Personal history of malignant neoplasm of prostate
CPT/HCPCS: 74178; Q9963; Q9967

== ENCOUNTER → 2024-05-22 | Outpatient (CLI) | payer OTHER ==
[~2024-05-22] MED LIST changes: -GASTROGRAFIN SOLUTION 30ML As Ordered ONE; -ISOVUE-370 76% 100ML VIAL As Ordered ONE; +PROHANCE 279.3MG/ML 15ML VIAL ONE; +PROHANCE 279.3MG/ML 5ML VIAL ONE
== END ==
LOC: M PLAIMG 07:52
PROVIDERS: ATTEND Internal Medicine
DX: K86.2 Cyst of pancreas (principal)
CPT/HCPCS: 74183; A9576

== ENCOUNTER → 2024-06-05 | Outpatient (REF) | payer OTHER ==
[~2024-06-05] MED LIST changes: +LISI10TA24 PO; -PROHANCE 279.3MG/ML 15ML VIAL ONE; -PROHANCE 279.3MG/ML 5ML VIAL ONE
== END ==
LOC: M LAB REF 16:17
PROVIDERS: ATTEND Internal Medicine
DX: K76.0 Fatty (change of) liver, not elsewhere classified (principal)

== ENCOUNTER → 2024-06-18 | Outpatient (CLI) | payer OTHER ==
[~2024-06-18] MED LIST changes: +PROHANCE 279.3MG/ML 15ML VIAL ONE; +PROHANCE 279.3MG/ML 5ML VIAL ONE
== END ==
LOC: M PLAIMG 13:38
PROVIDERS: ATTEND Internal Medicine
DX: K86.2 Cyst of pancreas (principal); K80.20 Calculus of gallbladder without cholecystitis without obstruction; C61 Malignant neoplasm of prostate
CPT/HCPCS: 36415; 74183; 84153; A9576

== ENCOUNTER → 2024-06-18 | Outpatient (CLI) | payer OTHER ==
[~2024-06-18] MED LIST changes: -PROHANCE 279.3MG/ML 15ML VIAL ONE; -PROHANCE 279.3MG/ML 5ML VIAL ONE
== END ==
LOC: M PLALAB 13:46
PROVIDERS: ATTEND Urology
DX: C61 Malignant neoplasm of prostate (principal)

== ENCOUNTER → 2024-07-04 | Outpatient (REF) | payer OTHER | LOC: M LAB REF 16:14 | PROVIDERS: ATTEND Internal Medicine | DX: K86.2 Cyst of pancreas (principal); Z85.46 Personal history of malignant neoplasm of prostate ==

== ENCOUNTER → 2024-10-27 | Outpatient (REF) | payer MEDICARE | LOC: M LAB REF 12:34 | PROVIDERS: ATTEND Internal Medicine | DX: K86.2 Cyst of pancreas (principal) ==

== ENCOUNTER → 2024-12-18 | Outpatient (CLI) | payer MEDICARE, OTHER | LOC: M ONCR 10:14 | PROVIDERS: ATTEND General Practice | DX: C61 Malignant neoplasm of prostate (principal); Z12.5 Encounter for screening for malignant neoplasm of prostate; N39.3 Stress incontinence (female) (male); Z87.898 Personal history of other specified conditions; Z79.899 Other long term (current) drug therapy; Z92.29 Personal history of other drug therapy; Z92.3 Personal history of irradiation; Z87.891 Personal history of nicotine dependence; Z86.19 Personal history of other infectious and parasitic diseases | CPT/HCPCS: G0103; G0463 ==

== ENCOUNTER → 2025-01-27 | Outpatient (CLI) | payer MEDICARE ==
[~2025-01-27] MED LIST changes: +PROHANCE 279.3MG/ML 15ML VIAL ONE; +PROHANCE 279.3MG/ML 5ML VIAL ONE
== END ==
LOC: M PLAIMG 07:23
PROVIDERS: ATTEND Surgery Surgical Oncology
DX: C61 Malignant neoplasm of prostate (principal); D13.6 Benign neoplasm of pancreas
CPT/HCPCS: 74183; A9576

== ENCOUNTER → 2025-06-19 | Outpatient (CLI) | payer MEDICARE, OTHER ==
[~2025-06-19] MED LIST changes: -PRAV40TA2 PO; +PRAV40TA85 PO; -PROHANCE 279.3MG/ML 15ML VIAL ONE; -PROHANCE 279.3MG/ML 5ML VIAL ONE
== END ==
LOC: M PLALAB 10:52
PROVIDERS: ATTEND Urology
DX: C61 Malignant neoplasm of prostate (principal)

== ENCOUNTER → 2025-08-21 | Outpatient (CLI) | payer MEDICARE ==
[~2025-08-21] MED LIST changes: +PROHANCE 279.3MG/ML 15ML VIAL ONE; +PROHANCE 279.3MG/ML 5ML VIAL ONE
== END ==
LOC: M PLAIMG 08:54
PROVIDERS: ATTEND Registered Nurse
DX: D13.6 Benign neoplasm of pancreas (principal)
CPT/HCPCS: 74183; A9579